=== PATIENT | female | born 1945 | race Two or more races ===

== ENCOUNTER 2018-08-02 21:55 | Emergency (ER) | payer OTHER ==
[2018-08-02 22:11] VITALS: BP 150/86; PULSE 67; TEMP 98; BMI 19.9
--- NOTE | 2018-08-02 22:13 | PDOC ---
History of Present Illness - General History Source: Patient Exam Limitations: No Limitations - History of Present Illness Initial Comments: 08/02/18 23:13 The patient is a 72 year old female, with a significant PMH of hypercholesterolemia, who presents to the emergency department for evaluation of a fall that occurred today. The patient states she was at work when she tripped on a package and fell to her right side. The patient states her right shoulder and elbow hurt, exacerbated when using the bathroom and driving. The patient denies any numbness or tingling. Denies any head trauma or bleeding. Allergies: NKDA Past surgical history: None reported Social history: None reported PCP: None reported <Peng Cazares - Last Filed: 08/03/18 00:02> <Tigist Adams - Last Filed: 08/03/18 03:59> - General Chief Complaint: Pain, Acute Stated Complaint: FELL AT WORK Time Seen by Provider: 08/02/18 22:09 Past History <Peng Cazares - Last Filed: 08/03/18 00:02> - Past Medical History COPD: No GI Disorders: Yes Hypercholesterolemia: Yes - Suicide/Smoking/Psychosocial Hx Smoking History: Never smoked Have you smoked in the past 12 months: No Information on smoking cessation initiated: No Hx Alcohol Use: No Drug/Substance Use Hx: No Substance Use Type: None <Tigist Adams - Last Filed: 08/03/18 03:59> - Past Medical History Allergies/Adverse Reactions: Allergies Allergy/AdvReac Type Severity Reaction Status Date / Time No Known Allergies Allergy Verified 08/02/18 22:01 Home Medications: Ambulatory Orders Amitriptyline HCl 12.5 mg PO HS 08/02/18 Atorvastatin Ca [Lipitor] 10 mg PO HS 08/02/18 Ranitidine HCl [Zantac] 150 mg PO HS 08/02/18 Review of Systems - Review of Systems Able to Perform ROS?: Yes Comments:: 08/02/18 23:14 GENERAL/CONSTITUTIONAL: No fever or chills. No weakness. HEAD, EYES, EARS, NOSE AND THROAT: No change in vision. No ear pain or discharge. No sore throat. CARDIOVASCULAR: No chest pain or shortness of breath. RESPIRATORY: No cough, wheezing, or hemoptysis. GASTROINTESTINAL: No nausea, vomiting, diarrhea or constipation. GENITOURINARY: No dysuria, frequency, or change in urination. MUSCULOSKELETAL: +right elbow and shoulder pain. No neck or back pain. SKIN: No rash NEUROLOGIC: No headache, vertigo, loss of consciousness, or change in strength/ sensation. ENDOCRINE: No increased thirst. No abnormal weight change. HEMATOLOGIC/LYMPHATIC: No anemia, easy bleeding, or history of blood clots. ALLERGIC/IMMUNOLOGIC: No hives or skin allergy. <Peng Cazares - Last Filed: 08/03/18 00:02> *Physical Exam - Vital Signs Last Vital Signs Temp Pulse Resp BP Pulse Ox 98 F 67 16 150/86 98 08/02/18 22:06 08/02/18 22:06 08/02/18 22:06 08/02/18 22:06 08/02/18 22:06 - Physical Exam Comments: 08/02/18 23:14 GENERAL: Awake, alert, and fully oriented, in no acute distress HEAD: No signs of trauma NECK: Normal ROM, supple, no lymphadenopathy, JVD, or masses LUNGS: Breath sounds equal, clear to auscultation bilaterally. No wheezes, and no crackles HEART: Regular rate and rhythm, normal S1 and S2, no murmurs, rubs or gallops ABDOMEN: Soft, nontender, normoactive bowel sounds. No guarding, no rebound. No masses EXTREMITIES: +Moderate edema and tenderness of the ulnar aspect distal forearm. No ecchymosis or deformities. No other abnormalities of the upper extremity. + Pain on abduction greater than 30 degree of the right shoulder. No tenderness, erythema, or edema. NEUROLOGICAL: Cranial nerves II through XII grossly intact. Normal speech, normal gait SKIN: Warm, Dry, normal turgor, no rashes or lesions noted <Peng Cazares - Last Filed: 08/03/18 00:02> - Vital Signs Last Vital Signs Temp Pulse Resp BP Pulse Ox 98 F 67 16 150/86 98 08/02/18 22:06 08/02/18 22:06 08/02/18 22:06 08/02/18 22:06 08/02/18 22:06 <Tigist Adams - Last Filed: 08/03/18 03:59> Moderate Sedation - Procedure Monitoring Vital Signs: Procedure Monitoring Vital Signs Temperature 98 F 08/02/18 22:06 Pulse Rate 67 08/02/18 22:06 Respiratory Rate 16 08/02/18 22:06 Blood Pressure 150/86 08/02/18 22:06 O2 Sat by Pulse Oximetry (%) 98 08/02/18 22:06 <Peng Caazres - Last Filed: 08/03/18 00:02> - Procedure Monitoring Vital Signs: Procedure Monitoring Vital Signs Temperature 98 F 08/02/18 22:06 Pulse Rate 67 08/02/18 22:06 Respiratory Rate 16 08/02/18 22:06 Blood Pressure 150/86 08/02/18 22:06 O2 Sat by Pulse Oximetry (%) 98 08/02/18 22:06 <Tigist Adams - Last Filed: 08/03/18 03:59> Medical Decision Making - Medical Decision Making Documentation has been prepared under my direction and personally reviewed by me in its entirety. I attest that this documented accurately reflects all work, treatment, procedures and medical decision making performed by me. As noted above, this 72-year-old woman with a history of osteoarthritis, hyperlipidemia and irritable bowel syndrome presents with history of falling onto her right upper extremity. While at work several hours prior to presentation, patient stumbled over a large box that had been delivered to her place of work. She fell bracing herself with her right wrist but also may have fallen onto the right shoulder. She denies loss of consciousness/neck injury or torso injury. She has been able to walk without difficulty since the injury. She complains of pain and swelling in her wrist, even at rest. She also has marked pain in her shoulder with movement (for example when putting on pants). Exam as noted. Right shoulder/right wrist x-rays performed. 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 X-ray was reviewed with Dr. Carmona of radiology staff: No evidence of fracture or dislocation present. Right shoulder x-ray shows no fracture or dislocation. Results discussed with the patient. Vin wrap applied to the right hand. The wrap should be kept on the hand during the day only for the next 5 days. The patient does not frequently nonsteroidal anti-inflammatory medications because of her irritable bowel syndrome. However, for severe pain she will take acetaminophen with naproxen (OTC) Patient will ice the wrist and shoulder for the next 48 hours. Patient should not work tomorrow. She has been do not have an orthopedist at this time: Referral information for Kylah Saravia and Rachel will be reviewed given to the patient for follow-up, especially if there is persistent pain in the shoulder or wrist. <Tigist Adams - Last Filed: 08/03/18 03:59> *DC/Admit/Observation/Transfer - Attestations Scribe Attestion: 08/02/18 23:14 Documentation prepared by Peng Cazares, acting as medical lab director for Tigist Adams MD. <Peng Cazares - Last Filed: 08/03/18 00:02> <Tigist Adams - Last Filed: 08/03/18 03:59> Diagnosis at time of Disposition: Wrist contusion Qualifiers: Encounter type: initial encounter Laterality: right Qualified Code(s): S60.211A - Contusion of right wrist, initial encounter Shoulder sprain Qualifiers: Encounter type: initial encounter Shoulder sprain type: unspecified sprain Laterality: right Qualified Code(s): S43.401A - Unspecified sprain of right shoulder joint, initial encounter - Discharge Dispostion Disposition: HOME Condition at time of disposition: Stable - Referrals Referrals: Narinder Saravia MD [Staff Physician] - - Patient Instructions Printed Discharge Instructions: Shoulder Sprain Additional Instructions: Ice/elevation right wrist as much as possible for the next 48 hours Vin wrap during the day, right wrist, for the next 5 days Ice to right shoulder the next 48 hours Acetaminophen/naproxen as needed for pain No work tomorrow If you have persistent wrist and/or shoulder pain, follow-up with orthopedist( ) - Post Discharge Activity Forms/Work/School Notes: Back to Work
== END 2018-08-02 23:25 | disposition home or self-care (01) ==
LOC: FER 21:55
DX: S60.211A Contusion of right wrist, initial encounter (principal); S43.401A Unspecified sprain of right shoulder joint, initial encounter; W18.39XA Other fall on same level, initial encounter; Y93.89 Activity, other specified; Y92.89 Other specified places as the place of occurrence of the external cause; E78.00 Pure hypercholesterolemia, unspecified
CPT/HCPCS: 73030-TC-RT-FY; 73110-TC-RT-FY; 99281-25